=== PATIENT | female | born 1950 | race Caucasian/White ===

== ENCOUNTER 2020-06-04 16:45 | Inpatient (IN) | payer MEDICAID, SELFPAY ==
[~2020-06-04] VITALS: Ht 149.9 cm; Wt 59.9 kg
[2020-06-04 16:55] VITALS: BP 143/57
--- NOTE | 2020-06-04 16:55 | NUR ---
PT TAKEN TO BED 4 TRIAGED AT BEDSIDE.
--- NOTE | 2020-06-04 17:13 | NUR ---
69YO F BIB SELF C/O PALPITATIONS FOR A FEW DAYS. PT WAS SEEN BY PCP LAST TUESDAY AND WAS TOLD SHE NEEDED TO EVALUATED FOR ANEMIA AND A POSSIBLE BLOOD TRANSFUSION. IN ER, HR= 100 BPM, REGULAR RHYTHM. PT IS RESTING COMFORTABLY IN BED. ERMD MADE AWARE OF PT STATUS. PMH: HTN, DM, ANEMIA NKA
[2020-06-04] MEDS ORDERED: NACL 0.9% 1,000 ML IV ONE ×2 (17:15→18:25)
[2020-06-04 17:57] LABS: BASOPHILS % (AUTO) 0.6 % (0.0-2.0); EOSINOPHILS # (AUTO) 0.1 K/uL (0-0.4); HEMATOCRIT 26.5 % (36-48); HEMOGLOBIN 8.2 g/dL (12.0-16.0); LYMPHOCYTES # (AUTO) 0.6 K/uL (2.5-16.5); LYMPHOCYTES % (AUTO) 16.2 % (20.5-51.1); MEAN CORPUSCULAR HEMOGLOBIN 22 pg (27-31); MEAN CORPUSCULAR HGB CONC 31 g/dL (33-37); MEAN CORPUSCULAR VOLUME 71.9 fL (80-94); MONOCYTES # (AUTO) 0.4 K/uL (0.8-1.0); NEUTROPHILS # (AUTO) 2.5 K/uL (1.8-7.7); NEUTROPHILS % (AUTO) 71.2 % (42.2-75.2); PLATELET COUNT (AUTO) 93 K/uL (140-450); RED BLOOD CELL COUNT(AUTO) 3.69 MIL/uL (4.20-5.40); RED CELL DISTRIBUTION WIDTH 16.7 % (11.6-13.7); WHITE BLOOD COUNT (AUTO) 3.5 K/uL (4.8-10.8)
[2020-06-04 18:08] LABS: APPEARANCE,URINE SL CLOUDY (CLEAR); BILIRUBIN,URINE NEGATIVE (NEGATIVE); BLOOD, URINE TRACE-I (NEGATIVE); COLOR,URINE YELLOW (YELLOW); LEUKOCYTE ESTERASE ,URINE NEGATIVE (NEGATIVE); NITRITE, URINE NEGATIVE (NEGATIVE); UGLUCOSE NEGATIVE (NEGATIVE)
[2020-06-04 18:14] LABS: ALBUMIN 3.5 g/dL (3.4-5.0); ANION GAP 16.6 (8-16); CREATININE 0.6 mg/dL (0.6-1.3); POTASSIUM 3.6 mmol/L (3.5-5.1); TOTAL BILIRUBIN 0.7 mg/dL (0.0-1.0)
[2020-06-04 18:20] LABS: WBC,URINE 0-5 /HPF (0-5)
[2020-06-04 18:46] LABS: PROTHROMBIN TIME 12.1 secs (10.8-13.4)
--- NOTE | 2020-06-04 19:10 | NUR ---
ALL CARE TRANSFERRED TO THERESE BOSE AT THIS TIME
--- NOTE | 2020-06-04 19:10 | NUR ---
RECEVIED REPORT FROM THERESE LEE FOR CONTINUITY OF CARE.
--- NOTE | 2020-06-04 19:31 | NUR ---
DARSHAN SWAB COLLECTED AND WALKED OVER TO LAB.
--- NOTE | 2020-06-04 20:13 | NUR ---
LAB AT BEDSIDE
[2020-06-04] MEDS ORDERED: CEPH250C16 PO (20:49)
[2020-06-04] MEDS ORDERED: METF500T PO (20:49)
[2020-06-04] MEDS ORDERED: DONE10TA10 PO (20:49)
[2020-06-04] MEDS ORDERED: DOCU-299 PO (20:49)
--- NOTE | 2020-06-04 21:18 | NUR ---
GAVE REPORT TO THERESE SILVA REGARDING PT VIA PHONE.
[2020-06-04] MEDS ORDERED: ZOLPIDEM 5 MG TAB PO PRN (21:25)
[2020-06-04] MEDS ORDERED: ONDANSETRON 4 MG/2 ML VIAL IM/IVP PRN (21:25)
[2020-06-04] MEDS ORDERED: HYDROcodone/APAP 7.5/325 MG 1 TAB PO PRN (21:25)
[2020-06-04] MEDS ORDERED: POTASSIUM CHLORIDE 10 MEQ TABER PO PRN (21:25)
[2020-06-04] MEDS ORDERED: DOCUSATE SODIUM 100 MG GELCAP PO PRN (21:25)
[2020-06-04] MEDS ORDERED: guaiFENesin DM 200/20 MG-10 ML 10 ML UDC PO PRN (21:25)
[2020-06-04] MEDS ORDERED: ACETAMINOPHEN 325 MG TAB PO PRN (21:25)
--- NOTE | 2020-06-04 21:25 | NUR ---
Patient will be admitted to care of DR. BROWNING. Admited to [facility]. Will go to [id number]. Belongings list completed. Report to THERESE SILVA.
[2020-06-04 21:40] VITALS: BP 125/66
--- NOTE | 2020-06-04 21:40 | NUR ---
RECEIVED PT AAOX4 , NID - O2 SAT WNL , FROM ER PER WHEELCHAIR - AMBULATES TO BED . IV SITE INTACT AND PATENT . ADM. ASSESSMENT DONE - MRSA SPECIMEN SENT TO LAB . PLAN OF CARE DISCUSSED AND NEEDS REINFORCEMENT DUE TO LANGUAGE BARRIER . PER ER ASSESSMENT RECORD PT C/O HEADACHE PRIOR TO ADM BUT DENIES ANY PAIN AT THIS TIME . WILL CONT. TO MONITOR.
[2020-06-04] MEDS: DEXT 5% /NACL 0.9% 1,000 ML IV SCH (22:35)
[2020-06-04 22:37] LABS: BARBITURATE, URINE NEGATIVE ng/ml (NEG <=200); BENZODIAZEPINE, URINE NEGATIVE ng/mL (NEG <=200); CANNABINOID, URINE NEGATIVE ng/mL (NEG <=50); COCAINE, URINE NEGATIVE ng/mL (NEG <=300); OPIATE, URINE NEGATIVE ng/mL (NEG <=2000); PHENCYCLIDINE SCREEN,URINE NEGATIVE ng/mL (NEG <=25)
[2020-06-04 23:22] LABS: CHOL/HDL RATIO 2.5 (1-4.5); FREE T4 (FREE THYROXINE) 0.96 ng/dL (0.76-1.46); MAGNESIUM 1.8 mg/dL (1.8-2.4); PHOSPHORUS 3.7 mg/dL (2.5-4.9); THYROID STIMULATING HORMONE 1.29 uIU/mL (0.34-3.74)
--- NOTE | 2020-06-05 | NUR ---
MADE ROUNDS , NO S/SX OF ACUTE DISTRESS NOTED . WALKS TO THE BATHROOM - VOIDE FREELY . DENIES ANY PAIN .CALL LIGHT WITHIN REACH .
--- NOTE | 2020-06-05 02:00 | NUR ---
RESTING ON BED COMFORTBALY - NO COMPLAIN MADE .
--- NOTE | 2020-06-05 04:00 | NUR ---
MADE ROUNDS . NO S/SX OF ACUTE DISTRESS NOTED . Addendum: 06/05/20 at 0759 by Nely Powell RN ACCU CHECK 130
--- NOTE | 2020-06-05 06:00 | NUR ---
TALKING HER DAUGHTER OVER BEDSIDE TEL .
--- NOTE | 2020-06-05 07:26 | NUR ---
ENDORSED TO AM SHIFT - PT - STABLE
--- NOTE | 2020-06-05 07:27 | NUR ---
RECEIVED ENDORSEMENT FROM NIGHT, AWAKE, ALERT, ORIENTEDX3, [place]THER[place] IRISH SPEAKER, BREATHING SPONTANEOUSLY AT ROOM AIR, NON LABORED BREATHING NOTED. WITH ONGOING IV FLUID D5 NS AT 60ML/HOUR INFUSING AT RT AC G18 IV CANNULA NOTED. NPO SINCE MIDNIGHT EXCEPT MEDS ORDERED. SAFETY MEASURES IN PLACE AND CONTINUE MONITOR.
[2020-06-05 07:40] LABS: WHITE BLOOD COUNT (AUTO) 3.1 K/uL (4.8-10.8)
[2020-06-05 07:41] LABS: HEMATOCRIT 23.7 % (36-48); HEMOGLOBIN 7.3 g/dL (12.0-16.0); LYMPHOCYTES % (AUTO) 19.1 % (20.5-51.1); MEAN CORPUSCULAR HEMOGLOBIN 22 pg (27-31); MEAN CORPUSCULAR HGB CONC 31 g/dL (33-37); MEAN CORPUSCULAR VOLUME 70.9 fL (80-94); MONOCYTES % (AUTO) 10.2 % (1.7-9.3); PLATELET COUNT (AUTO) 84 K/uL (140-450); RED BLOOD CELL COUNT(AUTO) 3.35 MIL/uL (4.20-5.40); RED CELL DISTRIBUTION WIDTH 16.5 % (11.6-13.7)
[2020-06-05 07:42] LABS: BASOPHILS % (AUTO) 0.6 % (0.0-2.0); EOSINOPHILS % (AUTO) 1.1 % (0.0-4.0); LYMPHOCYTES # (AUTO) 0.6 K/uL (2.5-16.5); MONOCYTES # (AUTO) 0.3 K/uL (0.8-1.0); NEUTROPHILS # (AUTO) 2.1 K/uL (1.8-7.7)
[2020-06-05 08:29] LABS: ANION GAP 14.6 (8-16); CARBON DIOXIDE 20.9 mmol/L (21-32); CREATININE 0.5 mg/dL (0.6-1.3); POTASSIUM 3.5 mmol/L (3.5-5.1)
--- NOTE | 2020-06-05 08:31 | NUR ---
PATIENT HAS BEEN SCREENED AND CATEGORIZED MODERATE NUTRITION RISK. PATIENT WILL BE SEEN WITHIN 3-5 DAYS OF ADMISSION. 06/07/20 06/09/[address]
[2020-06-05] MEDS ORDERED: SODIUM FERRIC GLUCONATE 125 MG in NACL 0.9% 100 ML IV SCH ×2 (09:00→09:30)
[2020-06-05] MEDS ORDERED: PANTOPRAZOLE 40 MG INJ VIAL IVP SCH (09:00)
[2020-06-05] MEDS ORDERED: PANTOPRAZOLE 40 MG TABEC PO SCH (09:00)
[2020-06-05] MEDS ORDERED: metFORMIN 500 MG TAB PO SCH (09:00)
[2020-06-05] MEDS: OCTREOTIDE ACETATE 1.25 MG in NACL 0.9% 250 ML IV SCH (10:10)
--- NOTE | 2020-06-05 10:10 | NUR ---
OCTREOTIDE BAG UNABLE TO SCAN, ENTER MANUALLY AND STARTED AT THE RATE OF 10ML/HOUR. IV CANNULA G 20 INSERTED AT LEFT HAND, ASYMPTOMATIC AND PATENT
--- NOTE | 2020-06-05 10:36 | NUR ---
SEEN AND EXAMINED BY DR. PRADO. GI, SPOKE WITH THE VIA PHONE WITH ANIMAL PATHOLOGY TEACHER ID [id number], CONSENT OBTAINED FOR EGD AND COLONOSCOPY
[2020-06-05] MEDS ORDERED: diphenhydrAMINE 50 MG/ML VIAL ONE (10:55)
[2020-06-05] MEDS ORDERED: fentaNYL citrate 0.05 MG/ML VIAL ONE (10:56)
[2020-06-05] MEDS ORDERED: MIDAZOLAM 2 MG/2 ML VIAL ONE (10:56)
--- NOTE | 2020-06-05 11:15 | NUR ---
TO OR PER BED IN STABLE CONDITION PICKED BY OR STAFF NURSE, FOR EGD, CONSENT SECURED.
[2020-06-05] MEDS: MIDAZOLAM 2 MG/2 ML VIAL IVP ONE ×2 (11:28→14:44)
[2020-06-05] MEDS: fentaNYL citrate 0.05 MG/ML VIAL IVP ONE ×2 (11:28→14:56)
[2020-06-05] MEDS: PANTOPRAZOLE 40 MG INJ VIAL IVP SCH (12:00)
--- NOTE | 2020-06-05 12:10 | NUR ---
BACK TO ROOM FROM OR, S/P EGD, RESULTS IN WITH ESOPHAGEAL VARICES. APPARENTLY AWAKE AND ALERT, NON LABORED BREATHING NOTED. ABOVE OCTREOTIDE DRIP RESUMED. KEPT COMFORTABLE TO BED AND CONTINUE MONITOR.
[2020-06-05] MEDS: LACTULOSE 20 GM/30 ML UDC PO SCH ×3 (12:53→21:55)
[2020-06-05] MEDS: SENNA 8.6 MG TAB PO SCH ×2 (12:54→16:24)
[2020-06-05] MEDS ORDERED: POTASSIUM CHLORIDE 20% 40 MEQ/15 ML UDC GT ONE (13:00)
[2020-06-05] MEDS ORDERED: LACTULOSE 20 GM/30 ML UDC PO SCH (13:00)
[2020-06-05] MEDS: DEXT 5% /NACL 0.9% 1,000 ML IV SCH (13:09)
--- NOTE | 2020-06-05 13:31 | NUR ---
CLEAR LIQUID STARTED, TOLERATED WELL WITHOUT VOMITING
--- NOTE | 2020-06-05 13:43 | NUR ---
SOCIAL WORK NOTE: Patient's Orientation Unable To Assess Information Provided By ELVIA GERALDINE - DAUGHTER Comments SW WAS UNABLE TO MEET PATIENT AT BEDSIDE TO COMPLETE ASSESSMENT. SARITHA COMPLETED ASSESSMENT WITH ELVIA WITH ACTIVITY MANAGER TITO [id number]. Project Management Specialist, Realtionship and Phone Number ELVIA CHANDLER DAUGHTER [phone] Healthcare Power of Surfboard Designer No Does Patient Have a POLST No Identifying Problems No Social Work Triggers Is A Social Work Consult Needed No Mandate Report Filed No Explanation Of Identifying Problems PATIENT IS A 69-YEAR-OLD FEMALE ADMITTED FOR GI BLEED AND ANEMIA. PATIENT HAS NO REPORTED PMHX. PATIENT'S DAUGHTER REPORTED NO HISTORY OF SUBSTANCE ABUSE OR MENTAL HEALTH. Admitted From Home Pre-Admission Level Of Functioning Status Independent/Ambulatory Prior Resources/Services Used In Last 12 Months No Prior Resources Used Prior DME No Prior DME Used Dialysis Comments N/A Living Situation Lives With Family House Patient Had Caregiver No Home Support No Caregiver Issues CG/Fam Able To Meet Need Financial Issues No Known Financial Issue Referral To The Financial Counselor Needed No Factors/Needs No D/C Needs Identified Pt/Rep Participated In Discharge Plan Yes Patient/Family Agress With Discharge Plan Yes Discharge Plan Comments TENTATIVE DISCHARGE PLAN IS FOR PATIENT TO RETURN HOME. DC Plan Status Initiated
[2020-06-05] MEDS ORDERED: FENTANYL C 0.05 MG/HR PATCH TD SCH (14:30)
--- NOTE | 2020-06-05 14:32 | NUR ---
AWAKE AND WATCHING TV, APPARENTLY VISITED BY FAMILY AT WINDOW VIEWING.
--- NOTE | 2020-06-05 16:31 | NUR ---
DUE MEDICATION GIVEN, AWAKE AND NOT IN DISTRESS NOTED.
--- NOTE | 2020-06-05 18:28 | NUR ---
AMBULATORY TO TOILET, ASSISTED WELL. ABLE TO PASSED WATERY STOOL CLAIMED.
--- NOTE | 2020-06-05 19:29 | NUR ---
ENDORSED TO INSURANCE COORDINATOR IN STABLE CONDITION FOR CONTINUITY OF CARE.
--- NOTE | 2020-06-05 19:30 | NUR ---
OPENING NTOE PT IS ALERT AND ORIENTED X3. STABLE VITAL SIGNS. NO REPORTED. RA. LEFT NEPHROSTOMY IN LLQ WITH DRESSING INTACT. URINE CLOUDY WITH SEDEMENT, YELLOW. NS RUNNING AT 75 ML/HR. SHIFT PRIORITY IS TO MONITOR FUNCTION OF NEPHROSTOMY, ADMINISTER 1 UNIT OF PRBC, AND MONITOR SIGNS OF INFECTION BED IN LOW, CALL LIGHT IN REACH, BED ALARM ON.
[2020-06-05] MEDS: SODIUM FERRIC GLUCONATE 125 MG in NACL 0.9% 100 ML IV SCH (22:01)
[2020-06-05] MEDS: SUPREP BOWEL PREP KIT 354 ML SOLN.RECON PO SCH (22:02)
[2020-06-06] VITALS: BP 167/65
--- NOTE | 2020-06-06 | NUR ---
ROUNDING PT IS HAVING BLOOD INFUSION. FEVER NOTED. TYLENOL GIVEN. EMPTY 700CC OF URINE FROM NEPHROSTOMY BAG
[2020-06-06] MEDS ORDERED: SODIUM FERRIC GLUCONATE 12.5 MG/ML AMP IV ONE (05:44)
[2020-06-06] MEDS: SODIUM FERRIC GLUCONATE 125 MG in NACL 0.9% 100 ML IV SCH ×3 (06:10→21:08)
[2020-06-06] MEDS: DEXT 5% /NACL 0.9% 1,000 ML IV SCH (06:11)
[2020-06-06 06:31] LABS: BASOPHILS % (AUTO) 0.7 % (0.0-2.0); EOSINOPHILS # (AUTO) 0.1 K/uL (0-0.4); EOSINOPHILS % (AUTO) 2.7 % (0.0-4.0); HEMATOCRIT 25.4 % (36-48); HEMOGLOBIN 7.9 g/dL (12.0-16.0); LYMPHOCYTES # (AUTO) 0.9 K/uL (2.5-16.5); LYMPHOCYTES % (AUTO) 28.9 % (20.5-51.1); MEAN CORPUSCULAR HEMOGLOBIN 23 pg (27-31); MEAN CORPUSCULAR HGB CONC 31 g/dL (33-37); MEAN CORPUSCULAR VOLUME 72.3 fL (80-94); MONOCYTES # (AUTO) 0.4 K/uL (0.8-1.0); MONOCYTES % (AUTO) 12.5 % (1.7-9.3); NEUTROPHILS # (AUTO) 1.7 K/uL (1.8-7.7); NEUTROPHILS % (AUTO) 55.2 % (42.2-75.2); PLATELET COUNT (AUTO) 86 K/uL (140-450); RED BLOOD CELL COUNT(AUTO) 3.51 MIL/uL (4.20-5.40)
[2020-06-06 06:49] LABS: ANION GAP 15.5 (8-16); CARBON DIOXIDE 22.3 mmol/L (21-32); CREATININE 0.8 mg/dL (0.6-1.3); POTASSIUM 3.8 mmol/L (3.5-5.1)
[2020-06-06 07:08] LABS: T4 (THYROXINE) 6.7 ug/dL (4.5-12.0)
--- NOTE | 2020-06-06 07:10 | NUR ---
RECEIVED PT FROM MICROFILMING DOCUMENT PREPARER COUNTRY PRINTER APPRENTICE, PT IS AWAKE AND LYING ON THE BED WITH SIDE RAILS UP AND CALL LIGHT WITHIN REACH, SAFETY AND FALL PRECAUTION IN PLACE, WITH STEADY GAIT PER ENDORSEMENT AND VERBALIZED BY PT, ON RA, IV LINES ON RT AC G. 18 WITH NS INFUSING AT 60ML/HR, INTACT AND ON LEFT HAND G. 20 WITH OCTREOTIDE INFUSING AT 10ML/HR, INTACT, NO SIGN OF DISTRESS NOTED AND WILL MONITOR PT.
[2020-06-06 08:16] LABS: HEPATITIS A ANTIBODY IGM Negative (Negative); HEPATITIS B CORE AB TOTAL Negative (Negative); HEPATITIS B SURFACE ANTIBODY Non Reactive (.); HEPATITIS B SURFACE ANTIGEN Negative (Negative)
[2020-06-06] MEDS: PANTOPRAZOLE 40 MG INJ VIAL IVP SCH (08:52)
[2020-06-06] MEDS: LACTULOSE 20 GM/30 ML UDC PO SCH ×2 (08:53→13:00)
[2020-06-06] MEDS: SENNA 8.6 MG TAB PO SCH ×2 (08:53→13:00)
--- NOTE | 2020-06-06 08:53 | NUR ---
PT WAS GIVEN THE BOWEL PREPARATION AND OTHER SCHEDULED AM MEDICATIONS VIA ORAL AND IV PUSH, TOLERATED AND WILL CONTINUE TO MONITOR PT.
[2020-06-06] MEDS: SUPREP BOWEL PREP KIT 354 ML SOLN.RECON PO SCH (09:07)
[2020-06-06] MEDS: OCTREOTIDE ACETATE 1.25 MG in NACL 0.9% 250 ML IV SCH (11:13)
--- NOTE | 2020-06-06 11:13 | NUR ---
SANDOSTATIN IV WAS GIVEN TO PT NOW, BOWEL IS CLEAR, PT VERBALIZED THAT SHE DOES NOT WANT TO FINISH THE BOWEL PREPARATION.
[2020-06-06] MEDS ORDERED: fentaNYL citrate 0.05 MG/ML VIAL ONE (13:21)
[2020-06-06] MEDS ORDERED: diphenhydrAMINE 50 MG/ML VIAL ONE (13:21)
[2020-06-06] MEDS ORDERED: MIDAZOLAM 5 MG/5 ML VIAL ONE (13:21)
--- NOTE | 2020-06-06 13:39 | NUR ---
PT IS OFF THE UNIT NOW FOR A COLONOSCOPY.
[2020-06-06 14:31] LABS: FERRITIN 8 ng/mL (15 - 150); FOLIC ACID > 20.00 ng/mL (>3.0); TRANSFERRIN 380 mg/dL (200 - 370)
--- NOTE | 2020-06-06 14:45 | NUR ---
PT CAME BACK FROM OR NOW
[2020-06-06] MEDS ORDERED: fentaNYL citrate 0.05 MG/ML VIAL IVP ONE (14:55)
[2020-06-06] MEDS ORDERED: MIDAZOLAM 2 MG/2 ML VIAL IVP ONE (14:55)
[2020-06-06] MEDS ORDERED: LACTULOSE 20 GM/30 ML UDC PO SCH (15:00)
[2020-06-06] MEDS ORDERED: FUROSEMIDE 20 MG/2 ML VIAL IVP SCH (15:00)
[2020-06-06] MEDS: FERROUS SULFATE 325 MG TABEC PO SCH (17:56)
[2020-06-06] MEDS: PROPRANOLOL 20 MG TAB PO SCH (17:56)
--- NOTE | 2020-06-06 18:00 | NUR ---
PT STARTED ON FULL LIQUID DIET, WILL MONITOR PT.
--- NOTE | 2020-06-06 19:15 | NUR ---
ENDORSED PT TO DIRECTOR OF GROUP SALES NURSE FOR CONTINUITY OF CARE AFTER GIVING ZOFRAN FOR FEELING OF NAUSEA. PT IS STABLE AT THIS TIME.
--- NOTE | 2020-06-06 19:19 | NUR ---
RECEIVED BEDSIDE ENDORSEMENT FROM THERESE NGUYEN. PT NOTED N/V, PATRICK GAVE PRN ZOFRAN 4MG IVP, NO SOB, PT ON FULL LIQUID DIET, CUSTOMER DEVELOPMENT REPRESENTATIVE SAID SHE ONLY TOOK 2 TABLE SPOON OF SOUP, HOB ELEVATED, ADVISE NOT TO STAND UP, SAFETY MEASURES IN PLACE, FALL PROTOCOL IN PLACE, PLAN OF CARE DISCUSSED, CALL LIGHT WITHIN REACH, WILL CONTINUE TO MONITOR.
[2020-06-06] MEDS ORDERED: METOPROLOL 25 MG TAB PO SCH (21:00)
[2020-06-06] MEDS: GLIMEPIRIDE 2 MG TAB PO SCH (21:09)
--- NOTE | 2020-06-06 21:18 | NUR ---
PT IS AWAKE, DUE MEDS GIVEN ORDERED, KEPT WARM AND DRY.
--- NOTE | 2020-06-06 22:10 | NUR ---
ASSISTED PT (SBA) IN GOING TO RESTROOM, NO C/O PAIN, KEPT COMFORTABLE.
--- NOTE | 2020-06-07 | NUR ---
V/S TAKEN, DENIES PAIN.
--- NOTE | 2020-06-07 03:01 | NUR ---
PT SLEEPING, RESPIRATION EVEN AND UNLABORED, CALL LIGHT WITHIN REACH.
[2020-06-07] MEDS: SODIUM FERRIC GLUCONATE 125 MG in NACL 0.9% 100 ML IV SCH ×3 (04:42→20:17)
--- NOTE | 2020-06-07 04:56 | NUR ---
PT WENT TO THE RESTROOM AND BACK TO BED SAFELY, FERRLECIT IV GIVEN ORDERED, KEPT CLEAN, DRY AND COMFORTABLE. CALL LIGHT WITHIN REACH.
--- NOTE | 2020-06-07 06:52 | NUR ---
CHECKED PT, SLEEPING, RESPIRATION EVEN AND UNLABORED, STABLE, NO DISTRESS, KEPT WARM, DRY AND COMFORTABLE, ALL NEEDS ATTENDED. CALL LIGHT WITHIN REACH.
--- NOTE | 2020-06-07 07:00 | NUR ---
RECEIVED REPORT FROM CLOTH SHRINKING SUPERVISOR NURSE REAGAN-RN. PT RESTING IN BED, AOX4- INDONESIAN SPEAKING, ON ROOM AIR WITH LEFT HAND #20 AND RIGHT AC#18G/SL. DISCUSSED PLAN OF CARE AND PT VERBALIZED UNDERSTANDING. NO S/S OF RESPIRATORY DISTRESS OR DISCOMFORT NOTED AT THIS TIME. WILL CONTINUE TO MONITOR.
[2020-06-07 07:26] LABS: CARBON DIOXIDE 24.8 mmol/L (21-32); CREATININE 0.8 mg/dL (0.6-1.3); POTASSIUM 3.8 mmol/L (3.5-5.1)
[2020-06-07 07:38] LABS: BASOPHILS % (AUTO) 0.5 % (0.0-2.0); EOSINOPHILS # (AUTO) 0.1 K/uL (0-0.4); EOSINOPHILS % (AUTO) 3.1 % (0.0-4.0); HEMATOCRIT 24.8 % (36-48); HEMOGLOBIN 7.7 g/dL (12.0-16.0); LYMPHOCYTES # (AUTO) 0.7 K/uL (2.5-16.5); LYMPHOCYTES % (AUTO) 15.2 % (20.5-51.1); MEAN CORPUSCULAR HEMOGLOBIN 22 pg (27-31); MEAN CORPUSCULAR HGB CONC 31 g/dL (33-37); MEAN CORPUSCULAR VOLUME 72.4 fL (80-94); MONOCYTES # (AUTO) 0.5 K/uL (0.8-1.0); MONOCYTES % (AUTO) 10.2 % (1.7-9.3); NEUTROPHILS # (AUTO) 3.2 K/uL (1.8-7.7); PLATELET COUNT (AUTO) 95 K/uL (140-450); RED BLOOD CELL COUNT(AUTO) 3.42 MIL/uL (4.20-5.40); RED CELL DISTRIBUTION WIDTH 17.1 % (11.6-13.7); WHITE BLOOD COUNT (AUTO) 4.5 K/uL (4.8-10.8)
[2020-06-07] MEDS: PROPRANOLOL 20 MG TAB PO SCH ×3 (08:49→17:07)
[2020-06-07] MEDS: LACTULOSE 20 GM/30 ML UDC PO SCH (08:50)
[2020-06-07] MEDS: GLIMEPIRIDE 2 MG TAB PO SCH ×2 (08:50→20:16)
[2020-06-07] MEDS: FERROUS SULFATE 325 MG TABEC PO SCH ×2 (08:50→17:07)
[2020-06-07] MEDS: SPIRONOLACTONE 25 MG TAB PO SCH (08:50)
--- NOTE | 2020-06-07 08:50 | NUR ---
SCHEDULED MEDICATIONS GIVEN AND TOLERATED WELL. PT REFUSED TO TAKE CEPHULAC BECAUSE SHE HAS DIARRHEA. NO S/S OF RESPIRATORY DISTRESS OR DISCOMFORT NOTED AT THIS TIME. WILL CONTINUE TO MONITOR.
[2020-06-07] MEDS ORDERED: CRUSHER, PILL MC ONE (08:52)
--- NOTE | 2020-06-07 11:00 | NUR ---
PT RESTING IN BED. NO S/S OF RESPIRATORY DISTRESS OR DISCOMFORT NOTED AT THIS TIME. WILL CONTINUE TO MONITOR.
--- NOTE | 2020-06-07 13:00 | NUR ---
PT RESTING IN BED. NO S/S OF RESPIRATORY DISTRESS OR DISCOMFORT NOTED AT THIS TIME. WILL CONTINUE TO MONITOR.
--- NOTE | 2020-06-07 13:51 | NUR ---
SCHEDULED MEDICATIONS GIVEN AND TOLERATED WELL. NO S/S OF RESPIRATORY DISTRESS OR DISCOMFORT NOTED AT THIS TIME. WILL CONTINUE TO MONITOR.
--- NOTE | 2020-06-07 16:00 | NUR ---
PT RESTING IN BED. NO S/S OF RESPIRATORY DISTRESS OR DISCOMFORT NOTED AT THIS TIME. WILL CONTINUE TO MONITOR.
--- NOTE | 2020-06-07 19:30 | NUR ---
RECEIVED PT SLEEPING, EASILY AROUSABLE, AAOX4, LITHUANIAN SPEAKING, ABLE TO MAKE NEEDS KNOWN, DENIES ANY PAIN AND NO SOB NOTED, SAFETY MEASURES IN PLACE, ENCOURAGE TO USE CALL LIGHT FOR ASSISTANCE, CALL LIGHT WITHIN REACH.
--- NOTE | 2020-06-07 20:20 | NUR ---
DUE FERRLECIT IVPB AND PO MEDICATION, ADMINISTERED, TOLERATED, ALL NEEDS ATTENDED.
[2020-06-07 23:30] VITALS: BP 136/52
--- NOTE | 2020-06-07 23:30 | NUR ---
PT SLEEPING, EASILY AROUSABLE, VITAL SIGNS STABLE, DENIES ANY PAIN, NO SOB NOTED, CONTINUE TO MONITOR CLOSELY.
[2020-06-08 04:00] VITALS: BP_SYST 110; BP_SYST 141; BP_DIAS 64; BP_DIAS 82
[2020-06-08] MEDS: SODIUM FERRIC GLUCONATE 125 MG in NACL 0.9% 100 ML IV SCH ×2 (04:32→12:44)
--- NOTE | 2020-06-08 04:35 | NUR ---
PT SLEEPING, EASILY AROUSABLE, NO DISTRESS NOTED, DUE FERRLECIT IVPB ADMINISTERED, MONITORED CLOSELY.
--- NOTE | 2020-06-08 07:34 | NUR ---
PT AWAKE, NO SIGNS OF DISTRESS, REPORT GIVEN TO THERESE LUNA FOR CONTINUITY OF CARE.
[2020-06-08] MEDS: GLIMEPIRIDE 2 MG TAB PO SCH (08:29)
[2020-06-08] MEDS: FERROUS SULFATE 325 MG TABEC PO SCH (08:29)
[2020-06-08] MEDS: PROPRANOLOL 20 MG TAB PO SCH ×2 (08:29→12:44)
[2020-06-08] MEDS: SPIRONOLACTONE 25 MG TAB PO SCH (08:30)
[2020-06-08] MEDS: LACTULOSE 20 GM/30 ML UDC PO SCH (08:30)
[2020-06-08 08:35] VITALS: BP 152/61
--- NOTE | 2020-06-08 08:35 | NUR ---
PT RESTING SEMIFOWLERS AND STATES NO PAIN.
[2020-06-08] MEDS ORDERED: SPIR50TA PO (11:14)
[2020-06-08] MEDS ORDERED: FERR325E14 PO (11:14)
--- NOTE | 2020-06-08 11:35 | NUR ---
PT IS WALKING STEADILY AROUND HER BED. PT C/O NO PAIN OR DISCOMFORT.
--- NOTE | 2020-06-08 13:13 | NUR ---
PT STABLE AND RESTING ON BED SEMIFOWLERS WHILE WATCHING TV.
--- NOTE | 2020-06-08 15:00 | NUR ---
PT D/C IN STABLE CONDITION; STATED NO PAIN OR DISCOMFORT. PT TEACHING WAS DONE AT BEDSIDE.
== END 2020-06-08 15:30 | disposition home or self-care (01) ==
LOC: MED 16:45 → MTU 20:14
PROVIDERS: ADMIT Family Medicine; ATTEND Family Medicine
PROC: 0DB68ZX Excision of Stomach, Via Natural or Artificial Opening Endoscopic, Diagnostic (ICD-10-PCS; principal; 2020-06-05 10:45)
PROC: 06L38CZ Occlusion of Esophageal Vein with Extraluminal Device, Via Natural or Artificial Opening Endoscopic (ICD-10-PCS; 2020-06-06)
PROC: 0DBG8ZZ Excision of Left Large Intestine, Via Natural or Artificial Opening Endoscopic (ICD-10-PCS; 2020-06-06 15:55)
DX: K74.60 Unspecified cirrhosis of liver (principal); I85.11 Secondary esophageal varices with bleeding; D50.9 Iron deficiency anemia, unspecified; E66.9 Obesity, unspecified; D69.6 Thrombocytopenia, unspecified; E11.9 Type 2 diabetes mellitus without complications; J98.11 Atelectasis; K76.6 Portal hypertension; K64.8 Other hemorrhoids; Z20.828 Contact with and (suspected) exposure to other viral communicable diseases; K80.20 Calculus of gallbladder without cholecystitis without obstruction; K31.89 Other diseases of stomach and duodenum; E86.0 Dehydration; K29.80 Duodenitis without bleeding; Z68.26 Body mass index [BMI] 26.0-26.9, adult; Z79.899 Other long term (current) drug therapy
CPT/HCPCS: 36415; 71045; 80048; 80053; 80305; 81001; 82150; 82607; 82728; 82746; 82948; 83036; 83540; 83690; 83735; 83880; 84100; 84436; 84439; 84443; 84479; 84484; 85025; 85045; 85610; 85730; 86677; 86704; 86706; 86708; 86709; 86803; 86886; 86900; 86901; 87040; 87081; 87340; 88305; 93005; 96360; 96361; 99285; C9113; J1200; J1940; J2250; J2354; J2405; J2916; J3010; J7030; J7042